=== PATIENT | female | born 2000 | race Caucasian/White ===

== ENCOUNTER 2023-04-29 05:06 | Inpatient (IN) | payer OTHER, SELFPAY ==
[2023-04-29] VITALS (78 sets, daily range): BP systolic 79–224; BP diastolic 38–201; PULSE 56–225; RESP 18; TEMP 36.3–36.8; O2SAT 96–100; BMI 30.2
--- NOTE | 2023-04-29 05:36 | LDADM ---
This patient, Cookie Hurst, was admitted to Labor/Delivery/Recovery 104 on 04/29/23 at 05:06. Plans for labor, pain management and were discussed with patient. Patient/family oriented to hospital policies and general routines including ID bracelet, bed and alarms, visiting hours, pain management, procedures, bathroom and other care routines, personal items, smoking policy, room service/diet and guest tray routines, infant security routines, and visiting hours. Patient/Family are encouraged to report perceived risks to care and to ask questions if they do not understand what they are told or what they should do. See OBIX for further documentation.
[2023-04-29 05:47] LABS: Basophils Percent Auto 0.4 % (0.2-1.2); Eosinophils Absolute Auto 0.5 K/mm3 (0-0.3); Eosinophils Percent Auto 6.3 % (0-4.4); Hematocrit 34.8 % (37.0-47.0); Hemoglobin 10.7 g/dL (12.0-15.0); Immature Granulocyte Absolute 0.05 K/mm3 (0.00-0.031); Immature Granulocyte Percent A 0.6 % (0-0.5); Lymphocytes Absolute Auto 2.05 K/mm3 (0.9-3.2); Lymphocytes Percent Auto 25.5 % (18.3-44.2); Mean Corpuscular HGB Conc 30.7 g/dl (32-36); Mean Corpuscular Hemoglobin 29.6 pg (26-34); Mean Corpuscular Volume 96.1 fl (80-100); Monocytes Absolute Auto 0.4 K/mm3 (0.1-0.6); Neutrophils Percent Auto 62.2 % (45.5-73.1); Platelet Count Result 273 k/mm3 (150-375); Red Blood Count 3.62 M/mm3 (4.2-5.4)
[2023-04-29] MEDS: CALCIUM CARBONATE (TUMS) 500 MG (200 MG ELEMENTAL) (06:37)
[2023-04-29] MEDS: miSOPROStol 25 MCG TABLET 50 MCG BY MOUTH (06:38)
[2023-04-29] MEDS: LACTATED RINGERS 1,000 ML 125 ML IV CONT ×2 (06:38→10:26)
[2023-04-29] MEDS: FAMOTIDINE 20 MG/2 ML VIAL (06:38)
[2023-04-29] MEDS: ONDANSETRON INJ 4 MG/2 ML VIAL IV PUSH (06:38)
[2023-04-29] MEDS: AMPICILLIN 2 GM/NS 100 ML 2 GM/100 ML BAG IVPB (06:39)
[2023-04-29 07:11] LABS: HIV 1/2 Ab P24 Ag Result Negative (Negative)
--- NOTE | 2023-04-29 10:33 | WPDANESEPP ---
Anes - Eval Pre Procedure Procedure: Labor Epidural Date/Time: 04/29/23 10:33 Surgeon: Sailaja Preop Diagnosis: Labor Pain Pre Op Diagnosis: IOL Patient Data Age: 22 Gender: F Height: 1.57 m Weight: 75 kg Last Vital Signs Pulse 75 04/29/23 10:31 BP 121/71 04/29/23 10:31 O2 Del Method Room Air 04/29/23 05:30 Allergies Allergy/AdvReac Type Severity Reaction Status Date / Time No Known Allergies Allergy Verified 04/19/23 12:42 Home Medications Medication Instructions Recorded Confirmed Type ondansetron HCl 4 mg tablet 4 mg PO Q6H PRN Nausea 04/19/23 04/19/23 History prenat.vits,pili,xir-llqp-erydj tablet 04/19/23 History Laboratory Tests 04/29/23 05:39 WBC 8.0 K/mm3 (4.5-10.0) RBC 3.62 L M/mm3 (4.2-5.4) Hgb 10.7 L g/dL (12.0-15.0) Hct 34.8 L % (37.0-47.0) MCV 96.1 fl (80-100) MCH 29.6 pg (26-34) MCHC 30.7 L g/dl (32-36) RDW 14.0 % (11.5-14.5) Plt Count 273 k/mm3 (150-375) MPV 11.0 H fl (7.4-10.4) Immature Gran % (Auto) 0.6 H % (0-0.5) Neut % (Auto) 62.2 % (45.5-73.1) Lymph % (Auto) 25.5 % (18.3-44.2) [place] % (Auto) 5.0 % (2.6-8.5) Eos % (Auto) 6.3 H % (0-4.4) Baso % (Auto) 0.4 % (0.2-1.2) Lymph # (Auto) 2.05 K/mm3 (0.9-3.2) [place] # (Auto) 0.4 K/mm3 (0.1-0.6) Eos # (Auto) 0.5 H K/mm3 (0-0.3) Baso # (Auto) 0.0 K/mm3 (0.0-0.1) Abs Immat Gran (auto) 0.05 H K/mm3 (0.00-0.031) Absolute Neuts (auto) 5.0 K/mm3 (1.3-6.7) Absolute Nucleated RBC 0.0 K/mm3 (0.0-0.012) Nucleated RBC % 0.0 % (0.0-0.2) RPR Pending HIV 1&2 Ab/P24 Ag 4thGn Negative (Negative) Blood Type O Positive Antibody Screen Negative : gestational age (, [place] 05/03/23) Patient hx anesthesia problems: none Family hx anesthesia problems: none Results Review: All pre-operative results and documents have been reviewed as part of the pre-operative evaluation. [facility] Past Medical History Medical History Charcot-Marleni disease Family History Family History Sibling CMT (Zhrpbcz-Mqatw-Ymdsm disease) Daughter CMT (Cdezqln-Whtqu-Kighq disease) Father CMT (Xbqiuqe-Ydhdf-Wjjth disease) Social History Social History Smoking status: Never smoker Substance use: never Do You Feel Safe in your Home?: Yes Lack of Transportation: No Lack of Food: Never True Current Housing: I Have Housing Concerned About Future Housing: No Difficulty Paying Gas/Electric Bills: No Difficulty Paying for Meds: No Currently Unemployed: No Education: High School Diploma/GED Difficulty w/ Childcare or Family Care: No Spiritual care concerns: No Exam Day of Procedure 04/29/23 10:33 Patient weight: normal Heart: regular rate and rhythm Lungs: normal air movement Airway: Mallampati scale class II Neurological: alert and oriented
[2023-04-29] MEDS: AMPICILLIN 1 GM/NS 50 ML 1 GM/50 ML BAG IVPB ×2 (10:36→14:33)
[2023-04-29] MEDS: OXYTOCIN 30 UNITS/NS 500 ML 30 UNITS/500 ML BAG 125 UNITS IV CONT ×2 (12:22→16:16)
--- NOTE | 2023-04-29 15:45 | P.PCNOB_ITS ---
OB - Vaginal Delivery Note Procedure Delivery date: 04/29/23 Induction method: AROM and Per Pitocin Protocol Delivery monitor: External FHT and External Uterine Route of delivery: Laceration Description: Labial (right) Delivery repair: vicryl Specimen: No Quantitative Blood Loss (ml): 50 Anesthesia type: Epidural Disposition: Floor Complications: No immediate complications [place] Baby Date of : 04/29/23 Time of : 15:30 Weeks of gestation at delivery: 39 Infant gender: Male presentation: vertex position: Left Occiput Anterior Placenta delivery description: Spontaneous Cord Vessel Description: 3 Vessels score one minute: 7 score five minutes: 9 Narrative: mother and baby in stable condition
[2023-04-29] MEDS: BENZOCAINE 20% AER SPR (*SP) 56 GM CAN 1 SPRAY TOPICAL (16:16)
[2023-04-29] MEDS: WITCH HAZEL 40 PADS 1 PAD TOPICAL (16:16)
--- NOTE | 2023-04-29 19:07 | OBPPTRN ---
Patient transferred to post room #282 via (wheelchair). Support person present. Oriented to unit, room, information board, rooming in, admission packet and security measures. Patient verbalizes understanding.
[2023-04-29] MEDS: ACETAMINOPHEN 325 MG TABLET 650 MG PO (19:18)
[2023-04-29] MEDS: IBUPROFEN 600 MG TABLET PO (19:19)
[2023-04-30] VITALS: BP 109/58; PULSE 79; RESP 18; TEMP 36.2; O2SAT 98
[2023-04-30] MEDS: IBUPROFEN 600 MG TABLET PO (03:06)
[2023-04-30] MEDS: ACETAMINOPHEN 325 MG TABLET 650 MG PO (03:07)
[2023-04-30 04:52] LABS: Hematocrit 32.8 % (37.0-47.0); Hemoglobin 10.1 g/dL (12.0-15.0)
[2023-04-30 08:08] VITALS: BP 106/64; PULSE 74; RESP 18; TEMP 36.5; O2SAT 100
--- NOTE | 2023-04-30 08:54 | PM.OBPNVD ---
OB - PN: Subj Subjective Date/time seen: 04/30/23 08:54 Interval history: pp day 1 doing well pt would like d/c home OB - PN: Obj Data Labs 04/30/23 03:25 Labs: Laboratory Results - last 24 hr 04/30/23 03:25 Hgb 10.1 L Hct 32.8 L OB - PN A/P Plan day: 1 Plan: routine care and discharge home Time Spent With Patient Time: Total time spent is greater than 50% in coordination of care (as documented) at patient's floor/unit and/or counseling patient: Review of Systems Review of Systems: All systems reviewed & are unremarkable except as noted in HPI and below Exam Const: General: cooperative and healthy appearing Resp: Effort & Inspection: normal respiratory effort Cardio: Rate: regular rate Back/Spine/Pelvis: Back: no CVA tenderness Skin: General skin exam: normal color Neuro: General: patient oriented x3 Extrem: Right lower extremity: normal to inspection Left lower extremity: normal to inspection
--- NOTE | 2023-04-30 08:57 | PM.OBDSVD ---
DS: Admitting Diagnosis Discharge Date 04/30/23 Admitting Diagnosis IOL DS: Discharge Diagnosis Discharge Diagnosis (1) Vaginal delivery: Code(s): O80 - Encounter for full-term uncomplicated delivery Status: Acute OB - DS: Summary OB Procedures : None OB Procedures Intrapartum: Spontaneous Vag Delivery OB Procedures: : None Peripartum Data Laceration Description: Labial (right) Time Spent with Patient Time attestation: Total time spent providing and/or coordinating discharge services: DS: Data Data Completed and Pending Labs on day of discharge: Labs from last 24 hours 04/30/23 03:25 Hgb 10.1 L Hct 32.8 L Discharge Plan Discharge Attending physician on discharge: Jia Menard Discharging Clinician: Kira Oswald Patient Disposition: Home, Self-Care Activity: may shower, pelvic rest and other - see discharge instructions Diet: regular Patient Instructions: Antibiotic Form Stand Alone Forms: General Discharge Information Follow-up/Referrals: Kira Oswald, CNM [Certified Nurse Director Of Operations Home Health] - 4 Weeks Discharge Medications: New ibuprofen 600 mg Tablet 600 mg PO Q6H PRN (Reason: Cramping) Qty: 30 0RF Continued #2 Tablet Discontinued ondansetron HCl [Zofran] 4 mg Tablet 4 mg PO Q6H PRN (Reason: Nausea) Date of admission: 04/29/23 05:06 Primary Care Provider: PHYSICIAN,WELDER 2ND SHIFT Admitting Provider: Jia Menard Attending physician on admission: Jia Menard Condition: Stable
--- NOTE | 2023-04-30 12:05 | WPDANLDPN2 ---
Anes-Prog Note L&D Date/Time: 04/30/23 12:05 Comfortable throughout: labor and delivery Neuraxial method: epidural Epidural/Spinal procedure site: clean & non-tender Neuro status: Neuro function grossly intact. Cardiovascular status: normal Respiratory status: normal Airway patency: baseline Mental status: baseline Post-Op hydration status: normal Vital Signs: Last Vital Signs Temp 36.5 C 04/30/23 08:08 Pulse 74 04/30/23 08:08 Resp 18 04/30/23 08:08 BP 106/64 04/30/23 08:08 Pulse Ox 100 04/30/23 08:08 O2 Del Method Room Air 04/29/23 05:30 Pain score (VAS): 10 I/O: Intake & Output 04/29/23 04/30/23 04/30/23 23:59 07:59 15:59 Intake Total 500 Output Total 82 Balance 418 Post-procedural complaints: none Patient feedback: Patient satisfied with anesthetic care.
[2023-05-01 14:56] LABS: Rapid Plasma Reagin Non-Reactive (NonReactive)
[2023-05-02 11:02] VITALS: BP 124/80; PULSE 61; RESP 18; TEMP 36.9; O2SAT 100
== END 2023-04-30 13:00 | disposition home or self-care (01) | DRG 560 ==
LOC: ANHLDR 05:10 → ANHOB2 19:23
PROVIDERS: Advanced Practice Midwife; Admitting Provider Obstetrics & Gynecology; Visit Provider Obstetrics & Gynecology
DX: O99.824 Streptococcus B carrier state complicating childbirth (principal); O70.0 First degree perineal laceration during delivery; Z3A.39 39 weeks gestation of pregnancy; Z37.0 Single live birth
CPT/HCPCS: 36415; 85014; 85018; 85025; 86592; 86703; 86850; 86900; 86901; A9270; G0432; J0290; J2405; J2590; J2795; J7120

== ENCOUNTER 2023-08-28 01:08 | Day surgery (SDC) | payer OTHER, SELFPAY ==
[2023-08-22 11:28] VITALS: BMI 25.0
--- NOTE | 2023-08-22 11:58 | PC.NURSE ---
Report to the Outpatient Waiting Room, entrance under the green pavilion located off [facility], at time __11:30AM on date __08/28/23 . Planned Procedure Time: __1:30PM . Time changes happen often and if your time is changed the preop area will call you the afternoon before. - You and your visitor will be asked to self-screen and do not enter if you have any COVID symptoms. - A mask is optional within the hospital at this time. Patients may have clear liquids (water, carbonated beverages, clear teas, apple juice) until 3 hours prior to surgery with a maximum of 20 ounces. - No food from midnight until time of surgery - Infants may have breast milk until 4 hours before surgery, infant formula 6 hours prior to surgery. - Children will be allowed to drink immediately following surgery. If applicable, please bring a bottle or sippy cup to assist with drinking. Juice, water, soda, and popsicles are readily available. For infants on formula, please bring formula the day of surgery. Pacifiers are allowed. Take the following medications with a SIP of water the morning of surgery: ____NONE DO NOT STOP ANY OF YOUR OTHER PRESCRIPTION MEDICATIONS PRIOR TO SURGERY ?EXCEPT THE FOLLOWING Medications to discontinue per physician NONE Date to take last dose Please no make-up, nail beninese, hairspray, perfume, deodorant, or body powder the day of surgery. No jewelry (including any body piercings) or valuables the day of surgery, leave them at home. Please take a shower or bath the night before, or the morning of, surgery with an antibacterial soap. Wear comfortable, loose fitting clothing. Children are encouraged to wear pajamas. - Jewelry must be removed prior to entering the operating room. Rings and piercings that are not removed may be cut off. - The hospital will not accept responsibility for valuables. - Please leave all valuables, including medications, at home the day of surgery. If you are going home after surgery, a licensed pole truck driver must drive you home. - NO public transportation without another adult if you receive anesthesia. - We recommend that an adult stay with you for 24 hours following discharge. - We also recommend that you do not drive, make important decision, drink alcoholic beverages, or take any drugs that were not prescribed by your health care provider for at least 24 hours after your discharge time. For Pediatric surgeries, we recommend two adults accompany the child home. Follow any additional instructions given to you from your surgeon. If you or anyone in your household have experienced Covid symptoms in the past week, please notify your surgeon or the nurse liaison at the phone number below for possible testing. Telephone instructions given to _PATIENT & S.O.-GEOFFREY___and asked if any additional questions and then verbalized understanding. Patient advised to call surgeon office or pre surgery nurse liaison [phone] if any additional questions.
[2023-08-28] VITALS (11 sets, daily range): BP systolic 95–108; BP diastolic 58–73; PULSE 74–89; RESP 13–20; TEMP 36.3–36.7; O2SAT 96–100; BMI 24.2
--- NOTE | 2023-08-28 00:05 | PM.IMHP ---
H&P: HPI History of Present Illness Date/Time: 08/28/23 00:05 Chief Complaint: desires sterilization Narrative: Patient is a 23 year old who presents for laparoscopic bilateral salpingectomy. Patient has a history of Lvkbtcm-Frrqw-Qkwiw syndrome and two children with the same syndrome. She does not desire future natural conception due to her genetic condition. She desires permanent sterilization to ensure no further conceptions. She understands that any future pregnancies would need IVF, which could be performed to select unaffected embryos from Jbyxfmg-Totrn-Ahhpy syndrome. Review of Systems Review of Systems: All systems reviewed & are unremarkable except as noted in HPI and below PMFSH Past Medical History Medical History (Updated 08/28/23 @ 00:09 by Ankush Amador MD) Charcot-Marleni disease Family History Family History Sibling CMT (Stxztwp-Ccgmf-Djdkc disease) Daughter CMT (Zailtph-Avbba-Inqgb disease) Father CMT (Bolyfxl-Qfyfh-Lpjxv disease) Social History Social History Smoking status: Never smoker Alcohol intake: current Substance use: never Do You Feel Safe in your Home?: Yes Lack of Transportation: No Lack of Food: Never True Current Housing: I Have Housing Concerned About Future Housing: No Difficulty Paying Gas/Electric Bills: No Difficulty Paying for Meds: No Currently Unemployed: No Education: High School Diploma/GED Difficulty w/ Childcare or Family Care: No Living arrangements: with family Additional living arrangements comments: [place] Spiritual care concerns: No Meds Home Medications and Allergies Home Medications Medication Instructions Recorded Confirmed Type metoclopramide HCl 10 mg tablet 10 mg PO QID 08/22/23 08/22/23 History Allergies Allergy/AdvReac Type Severity Reaction Status Date / Time No Known Allergies Allergy Verified 08/22/23 11:24 Exam Const: General: comfortable and no acute distress HENMT: Mouth: Yes moist mucous membranes Eyes: General: appearance normal, both eyes and all related structures Resp: Effort & Inspection: normal respiratory effort Skin: General skin exam: normal color Extrem: General: normal to inspection Psych: Mental Status: mental status grossly normal Assessment and Plan Assessment and plan (1) Encounter for sterilization: Code(s): Z30.2 - Encounter for sterilization Status: Acute Assessment and Plan: - patient desires permanent sterilization to avoid natural conception due to personal history as well as two children affected by Atwwchr-Upvox-Rbdux syndrome - discussed that future pregnancies would require IVF - patient understanding and desires to proceed with laparoscopic bilateral salpingectomy (2) 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
--- NOTE | 2023-08-28 12:07 | WPDANESEPPF ---
Anes - Initial Pre Proc Eval Procedure: Operation Date: 08/28/23 13:30 Proposed Procedures p Laparoscopic Bilateral Salpingectomy - Ankush Amador MD Date/Time: 08/28/23 12:07 Surgeon: Ankush Amador MD Pre Op Diagnosis: Vol Sterilization Patient Data Age: 23 Gender: F Height: 1.57 m Weight: 62 kg Allergies Allergy/AdvReac Type Severity Reaction Status Date / Time No Known Allergies Allergy Verified 08/22/23 11:24 Home Medications Medication Instructions Recorded Confirmed Type metoclopramide HCl 10 mg tablet 10 mg PO QID 08/22/23 08/22/23 History Patient hx anesthesia problems: none Family hx anesthesia problems: none Results Review: All pre-operative results and documents have been reviewed as part of the pre-operative evaluation. [facility] Past Medical History Medical History Charcot-Marleni disease Family History Family History Sibling CMT (Dmguncn-Zkcse-Harxl disease) Daughter CMT (Sagmcwn-Vzsmf-Juand disease) Father CMT (Ukivnmk-Vonxe-Hbqpt disease) Social History Social History Smoking status: Never smoker Alcohol intake: current Substance use: never Do You Feel Safe in your Home?: Yes Lack of Transportation: No Lack of Food: Never True Current Housing: I Have Housing Concerned About Future Housing: No Difficulty Paying Gas/Electric Bills: No Difficulty Paying for Meds: No Currently Unemployed: No Education: High School Diploma/GED Difficulty w/ Childcare or Family Care: No Living arrangements: with family Additional living arrangements comments: [place] Spiritual care concerns: No Anes - Eval Final PreProcedure Day of Procedure 08/28/23 12:07 Patient weight: normal Heart: regular rate and rhythm Lungs: clear to auscultation Airway: Mallampati scale class II Neurological: alert and oriented Last oral intake: >/= 8 hours ASA classification: II Emergent: no Anesthetic plan: proceed Anesthesia type and monitoring: general ETT and standard monitoring Results Review: All pre-operative results and documents have been reviewed as part of the pre-operative evaluation. 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 Informed Consent: The patient's anesthetic plan and its attendant risks and benefits were discussed with the patient/family/POA. Questions were solicited and answers provided to the satisfaction of the patient/family/POA.
[2023-08-28] MEDS: LACTATED RINGERS 1,000 ML 30 ML IV CONT ×2 (12:10→13:34)
[2023-08-28] MEDS: ACETAMINOPHEN 500 MG TABLET 1000 MG PO (12:21)
[2023-08-28] MEDS: KETOROLAC 15 MG/ML VIAL (*BKC) IV PUSH (12:22)
--- NOTE | 2023-08-28 12:29 | WPDHPUPDATE1 ---
History and Physical Update Update Date/Time: 08/28/23 12:29 History and Physical has been reviewed, including an updated exam of the patient. There are NO changes in the patient's condition. Risks, benefits, and alternatives have been discussed and questions answered. Patient agrees to proceed with procedure.
--- NOTE | 2023-08-28 12:39 | W.PM.PROC2 ---
Procedure Note - Detailed Date of Procedure 08/28/23 Pre-op Diagnosis Vol Sterilization Post-op Diagnosis Same Procedure Performed laparoscopic bilateral salpingectomy Surgeon Ankush Amador MD Anesthesia General Findings normal appearing uterus, bilateral fallopian tubes, and ovaries; functional cyst on right ovary Description of Procedure With IV fluids infusing, the patient was taken to the operating room. The patient was placed in supine position. General anesthesia with endotracheal intubation was given. A time-out took place. The patient was placed in dorsal lithotomy position using Medardo stirrups and she was prepped and draped in the usual sterile fashion. The bladder was drained using a red rubber catheter. A sterile speculum was placed vaginally, the anterior lip of the cervix was grasped with a single-tooth tenaculum and the acorn uterine manipulator was placed without difficulty. The speculum was removed. The surgeon's gloves were changed and attention was turned to the abdomen. A 5 mm incision was made in the umbilicus. Under direct visualization with the scope, the umbilical port was inserted without difficulty. Another two trocars were placed under direct visualization in the left upper and lower quadrants. The patient was placed in Trendelenburg and inspection of the pelvis noted the above findings. Appropriate pictures were taken. Using the LigaSure devise, a left salpingectomy was performed in the usual fashion. Care was taken to avoid the IP ligament. The salpingectomy went smoothly. The same procedure was repeated on the right side. The instruments were all removed from the abdomen and the CO2 gas was allowed to escape. The three skin incisions were reapproximated with 4-0 Polysorb in a subcuticular manner, followed by skin glue. The acorn manipulator and single tooth tenaculum was removed from the uterus and cervix, respectively. The tenaculum sites were hemostatic. All instruments were removed from the vagina. At the end of the case, instrument, sponge and needle counts were correct x 2. The patient was awakened from general anesthesia and was taken to PACU in stable condition. Estimated Blood Loss 10 Pathology Yes Complications No immediate complications Condition Stable Disposition Same day
[2023-08-28] MEDS: LIDO 1%/EPINEPHRINE 1:100,000 20 ML VIAL 10 ML INFILTRATE (13:10)
[2023-08-28] MEDS: SILVER NITRATE (*SP) STICK 1 EACH TOPICAL (13:26)
[2023-08-28] MEDS: ONDANSETRON INJ 4 MG/2 ML VIAL IV PUSH (13:53)
--- NOTE | 2023-08-28 13:57 | SUR.PHASEI ---
USING DEAF REZA ON PATIENT'S PHONE TO COMMUNICATE. PATIENT DENIES PAIN/NAUSEA. OCCAS DRY COUGH.
[2023-08-28] MEDS: fentaNYL CITRATE INJ (*CRX) 100 MCG/2 ML VIAL 25 MCG IV PUSH (14:25)
[2023-08-28] MEDS: oxyCODONE HCL (*CRX) 5 MG TAB IR PO (15:32)
== END 2023-08-28 16:02 | disposition home or self-care (01) ==
PROVIDERS: Visit Provider Obstetrics & Gynecology
PROC: (CPT 49320; principal; 2023-08-28 13:30)
DX: Z30.2 Encounter for sterilization (principal); N83.201 Unspecified ovarian cyst, right side; G60.0 Hereditary motor and sensory neuropathy
CPT/HCPCS: 58661; 88302; A9270; J1100; J1885; J2250; J2405; J2704; J3010; J7120

== ENCOUNTER 2023-11-30 18:26 | Emergency (ER) | payer OTHER, SELFPAY ==
--- NOTE | ~2023-11-30 | XR_ITS ---
XR ankle RT min 3V Ordering provider: HOLLY Man History: . fell today. lateral pain RT ANKLE PAIN . Comparison: None. FINDINGS: BONES: No acute fracture or dislocation. JOINT SPACES: Normal. SOFT TISSUES: Normal. IMPRESSION: No acute osseous abnormality of the right ankle. Reviewed, dictated and finalized at location A.
[2023-11-30 18:33] VITALS: BP 101/70; PULSE 72; RESP 16; TEMP 37.1; O2SAT 100
--- NOTE | 2023-11-30 19:30 | ED.LOWEXIN ---
HPI - Extremity Injury (Lower) General Chief Complaint: Extremity Injury, Lower Stated Complaint: Fall Injury/Right Ankle Time Seen by Provider: 11/30/23 19:22 Source: patient and RN notes reviewed Mode of arrival: ambulatory Limitations: no limitations History of Present Illness HPI Narrative: Patient presents today complaining of right foot and ankle pain. She tripped over a toy at home and fell down 4-5 steps twisting her right foot and ankle. She denies any current pain, but reports tingling and numbness to the foot and ankle. She has Charcot Marlnei Tooth and has numbness and tingling at baseline, but states it is more so at this time. She is wearing a home brace which does provide some stability. Related Data Home Medications Medication Instructions Recorded Confirmed No Home Medications 11/30/23 11/30/23 Allergies Allergy/AdvReac Type Severity Reaction Status Date / Time No Known Allergies Allergy Verified 08/28/23 12:18 Review of Systems Review of Systems: CONSTITUTIONAL: Denies body aches, fever, chills, or sweats. EYES: Denies visual changes, redness, or discharge. ENT: Denies rhinorrhea, congestion, sore throat, or otalgia. CARDIOVASCULAR: Denies chest pain, palpitations, or edema. RESPIRATORY: Denies cough or dyspnea. GASTROINTESTINAL: Denies abdominal pain, nausea, vomiting, or diarrhea. GENITOURINARY: Denies dysuria or hematuria. SKIN: Denies rash, itching, or wounds. MUSCULOSKELETAL: Right foot and ankle pain injury NEUROLOGIC: Denies headache, weakness.+ numbness, tingling PSYCH: Denies depression or anxiety. [facility] Past Medical History Medical History Charcot-Marleni disease Family History Family History Sibling CMT (Luaouuo-Ghill-Twmdj disease) Daughter CMT (Jysepto-Khylq-Vioqc disease) Father CMT (Kggmivg-Koxlg-Zkhez disease) Social History Social History Smoking status: Never smoker Alcohol intake: current Substance use: never Do You Feel Safe in your Home?: Yes Lack of Transportation: No Lack of Food: Never True Current Housing: I Have Housing Concerned About Future Housing: No Difficulty Paying Gas/Electric Bills: No Difficulty Paying for Meds: No Currently Unemployed: No Education: High School Diploma/GED Difficulty w/ Childcare or Family Care: No Living arrangements: with family Additional living arrangements comments: [place] Spiritual care concerns: No Comments At time of signature, I have reviewed and agree with nursing past medical, surgical, social and family history unless otherwise noted. Please see nursing chart for further information. There is no relevant family history pertinent to the presenting complaint Exam Narrative: GENERAL: Well-appearing, well-nourished, and in no acute distress. HEAD: Normocephalic, atraumatic. EYES: EOMI. No redness or drainage. Conjunctivae normal. ENT: Mucous membranes pink and moist. Nares clear. Deaf. NECK: Normal AROM. CHEST: No respiratory distress. EXTREMITIES: Right leg: Mild tenderness to the lateral proximal foot and ankle. No edema, erythema, ecchymosis, deformity. Numbness and tingling at baseline to the ankle and foot. Capillary refill normal. Pedal pulse normal. SKIN: Warm, dry, no rash. Capillary refill normal. Normal skin turgor. NEURO: No focal deficits. Alert and oriented x3. Gait steady. PSYCH: Normal affect. No signs of depression or anxiety. Course Course Level of Care: Express Care Visit Vital Signs Vital signs: Vital Signs Temperature 98.8 F 11/30/23 18:33 Pulse Rate 72 11/30/23 18:33 Respiratory Rate 16 11/30/23 18:33 Blood Pressure 101/70 11/30/23 18:33 Pulse Oximetry 100 11/30/23 18:33 Oxygen Delivery Room Air 11/30/23 18:33 Temperat
== END 2023-11-30 19:58 | disposition home or self-care (01) ==
PROVIDERS: Emergency Provider Nurse Practitioner
DX: S93.401A Sprain of unspecified ligament of right ankle, initial encounter (principal); W10.9XXA Fall (on) (from) unspecified stairs and steps, initial encounter; G60.0 Hereditary motor and sensory neuropathy
CPT/HCPCS: 73610; 99213; G0463